=== PATIENT | male | born 1995 ===

== ENCOUNTER 2018-08-08 13:05 | Emergency (ER) | payer OTHER ==
--- NOTE | 2018-08-08 14:35 | UC ---
Respiratory Complaint HPI - HPI Summary HPI Summary: 23-year-old male presents with complaints of a persistent cough for the past 2 weeks. States he had some cold-like symptoms for the first few days including nasal congestion, runny nose, and a mild sore throat which have all subsided. States cough tends to be worse first thing in the morning however he has occasional fits throughout the day. Denies fever, chills, ear pain, dysphagia, chest pain, palpitations, shortness of breath, abdominal pain, nausea, or vomiting. - History of Current Complaint Chief Complaint: UCRespiratory Stated Complaint: COUGH Time Seen by Provider: 08/08/18 13:39 Hx Obtained From: Patient Pain Intensity: 0 - Allergies/Home Medications Allergies/Adverse Reactions: Allergies Allergy/AdvReac Type Severity Reaction Status Date / Time No Known Allergies Allergy Verified 08/08/18 13:22 Home Medications: Home Medications Guaifenesin/Pseudo 600/60(NF) [Mucinex D 600/60 (NF)] 2 tab PO Q12H 08/08/18 [ History Confirmed 08/08/18] PMH/Surg Hx/FS Hx/Imm Hx Previously Healthy: Yes - Denies significant PMH - Surgical History Surgical History: None - Family History Known Family History: Positive: Non-Contributory - Social History Occupation: Employed Full-time Lives: Alone Alcohol Use: Weekly Substance Use Type: None Smoking Status (MU): Never Smoked Tobacco Review of Systems All Other Systems Reviewed And Are Negative: Yes Constitutional: Negative: Fever, Chills Skin: Negative: Rash Eyes: Negative: Drainage, Eye Redness ENT: Negative: Sore Throat, Ear Ache, Nasal Discharge, Sinus Congestion, Sinus Pain/Tenderness Respiratory: Positive: Cough. Negative: Shortness Of Breath Cardiovascular: Negative: Palpitations Gastrointestinal: Negative: Abdominal Pain, Vomiting, Nausea Genitourinary: Positive: Negative Musculoskeletal: Positive: Negative Neurological: Positive: Negative Is Patient Immunocompromised?: No Physical Exam - Summary Physical Exam Summary: GENERAL APPEARANCE: Well developed, well nourished, alert and cooperative, and appears to be in no acute distress. EYES: Conjunctiva clear. No drainage. EARS: External auditory canals and tympanic membranes clear, hearing grossly intact. NOSE: No nasal discharge. THROAT: Pharynx normal. No tonsilar inflammation, swelling, exudate, or lesions. Uvula midline. Oral cavity normal. Teeth and gingiva in good general condition. NECK: Neck supple, non-tender without lymphadenopathy. CARDIAC: Normal S1 and S2. No S3, S4 or murmurs. Rhythm is regular. There is no peripheral edema, cyanosis or pallor. Extremities are warm and well perfused. Capillary refill is less than 2 seconds. Peripheral pulses intact. LUNGS: Few fine crackles in the right lung field that cleared with cough. ABDOMEN: Positive bowel sounds. Soft, nondistended, nontender. No guarding or rebound. No masses or hepatosplenomegally. MUSKULOSKELETAL: ROM intact to all extremities. No joint erythema or tenderness. Normal muscular development. Normal gait. SKIN: Skin normal color, texture and turgor with no lesions or eruptions. Triage Information Reviewed: Yes Vital Signs: Initial Vital Signs Temp 100.0 F 08/08/18 13:19 Pulse 77 08/08/18 13:19 Resp 18 08/08/18 13:19 BP 118/79 08/08/18 13:19 Pulse Ox 99 08/08/18 13:19 Vital Signs Reviewed: Yes Respiratory Course/Dx - Course Course Of Treatment: 23-year-old male presents with complaints of a persistent cough for the past 2 weeks. States he had some cold-like symptoms for the first few days including nasal congestion, runny nose, and a mild sore throat which have all subsided. States cough tends to be worse first thing in the morning however he has occasional fits throughout the day. Denies fever, chills, ear pain, dysphagia, chest pain, palpitations, shortness of breath, abdominal pain, nausea, or vomiting. Patient had a mildly elevated temperature of 100.0 F at triage. Vital signs otherwise stable. Patient was noted to have a few fine crackles in the right lung field that cleared with cough. Considering the duration of his symptoms and the low-grade fever I will treat him with a course of azithromycin and provided him with Tessalon Perles one capsule every 8 hours as needed for cough. He is to return here or follow up with primary care in 7 days if symptoms are not improving. Anticipatory guidance and warning symptoms are reviewed with the patient. Verbalizes understanding and agrees with plan of care. - Differential Dx/Diagnosis Differential Diagnosis/HQI/PQRI: Bronchitis, Lower Resp Infection Provider Diagnosis: Upper respiratory infection with cough and congestion Discharge - Sign-Out/Discharge Documenting (check all that apply): Patient Departure All imaging exams completed and their final reports reviewed: No Studies - Discharge Plan Condition: Stable Disposition: HOME Prescriptions: Azithromyxin CHERYL (NF) [Z-Cheryl (Zithromax) 250 mg tabs #6] 2 tab PO .TODAY, THEN 1 DAILY #6 tab Benzonatate CAP* [Tessalon 100 MG CAP*] 100 mg PO TID PRN #21 cap PRN Reason: Cough Patient Education Materials: Upper Respiratory Infection (ED) Referrals: No Primary Care Phys,NOPCP [Primary Care Provider] - Additional Instructions: Your history and exam are consistent with an upper respiratory infection with cough and congestion. Considering the duration of your symptoms and the low grade fever in the clinic today I will treat you with an antibiotic. Start azithromycin (Zithomax) 2 tabs today then 1 tablet a day for next 4 days. Take Tessalon Perles 1 capsule every 8 hours as needed for cough. Take over the counter acetaminophen (Tylenol) or ibuprofen (Advil, Motrin) according to directions as needed for pain or fever. Return here in 7 days if symptoms persist. I have given you the contact information for the [facility] physician referral service if you need help establishing with a primary care provider. Seek immediate medical attention in the emergency room if you have fever greater than 100.5 F despite taking acetaminophen or ibuprofen, have chest pain , difficulty breathing, or have any worsening of symptoms. - Billing Disposition and Condition Condition: STABLE Disposition: Home
== END 2018-08-08 14:48 | disposition home or self-care (01) ==
LOC: UCEAST 13:05
DX: J06.9 Acute upper respiratory infection, unspecified (principal); R05 Cough; J34.89 Other specified disorders of nose and nasal sinuses
CPT/HCPCS: 99202; G0463